=== PATIENT | male | born 1995 | race Caucasian/White ===

== ENCOUNTER 2023-01-19 18:25 | Emergency (ER) | payer OTHER ==
[~2023-01-19] VITALS: Ht 167.6 cm; Wt 74.0 kg
[2023-01-19] MEDS ORDERED: SODIUM CHLORIDE 0.9% 1,000 ML IV ONE (19:00)
[2023-01-19] MEDS ORDERED: LORAZEPAM 2MG/ML CPJ IV ONE (19:00)
[2023-01-19 19:11] LABS: BASOPHILS % 0.4 % (0.0-2.0); EOSINOPHILS % 0.8 % (0.0-5.0); HEMATOCRIT. 42.7 % (42.0-52.0); HEMOGLOBIN. 15.1 g/dL (14.0-18.0); LYMPHOCYTES % 26.5 % (20.0-50.0); MEAN CORPUSCULAR HEMOGLOBIN 31.4 pg (28.0-32.0); MEAN CORPUSCULAR VOLUME 88.9 fL (80.0-94.0); MEAN PLATELET VOLUME 6.8 fl (7.4-10.4); MONOCYTES % 7.7 % (2.0-8.0); NEUTROPHILS % 64.6 % (40.0-76.0); PLATELET 394 x1000/uL (130-400); RED CELL DISTRIBUTION WIDTH 12.9 % (11.6-14.6)
[2023-01-19 19:18] LABS: CHLORIDE 104 mEq/L (98-107)
[2023-01-20] MEDS ORDERED: IOHEXOL-350 100 ML BOTTLE ONE (07:13)
[2023-01-20 14:57] VITALS: BP 126/77
== END 2023-01-20 15:03 | disposition home or self-care (01) ==
LOC: ER 18:25
DX: S00.12XA Contusion of left eyelid and periocular area, initial encounter (principal); S00.11XA Contusion of right eyelid and periocular area, initial encounter; R00.2 Palpitations; F41.9 Anxiety disorder, unspecified; X58.XXXA Exposure to other specified factors, initial encounter; Y93.89 Activity, other specified; Y92.89 Other specified places as the place of occurrence of the external cause; Y99.8 Other external cause status
CPT/HCPCS: 36415; 70450; 71045; 71275; 80053; 85025; 85379; 93005; 96361; 96374; 99285; J2060; J7030; Q9967; Z7610